=== PATIENT | female | born 1995 | race Caucasian/White ===

== ENCOUNTER 2017-11-08 09:38 | Emergency (ER) | payer SELFPAY ==
[~2017-11-08] VITALS: Ht 167.6 cm; Wt 67.5 kg
[~2017-11-08 09:38] MED LIST: PREDNISONE50 MG PO; PROVENTIL HFA6.7 GM IH; ZITHROMAX Z-PA250 MG PO
[2017-11-08 10:28] LABS: APPEARANCE CLOUDY ((CLEAR)); BILIRUBIN NEGATIVE; BLOOD MODERATE; GLUCOSE (STRIP) NEGATIVE; KETONES 20; LEUKOCYTES MODERATE; NITRITE NEGATIVE; PROTEIN (STRIP) 100; SPECIFIC GRAVITY 1.016 (1.000-1.030); UROBILINOGEN 0.2 MG/DL (0.2-1.0)
[2017-11-08 10:34] LABS: COLOR BLOODY ((YELLOW))
[2017-11-08 10:38] LABS: BASOPHIL (%) 0.4 % (0-1); EOSINOPHIL (%) 0.6 % (0-5); EOSINOPHIL COUNT 0.1 K/uL (0-0.3); HEMATOCRIT 39.9 % (36.0-46.0); HEMOGLOBIN 13.6 G/DL (11.9-15.5); IMMATURE GRANULOCYTE (%) 0.2 % (0.0-0.7); LYMPHOCYTE (%) 20.4 % (15-42); MCH 30.4 PG (29.0-34.0); MCHC 34.1 G/DL (30.0-36.0); MCV 89.1 FL (83-99); MONOCYTE (%) 5.4 % (3-12); MONOCYTE COUNT 0.5 K/uL (0-0.8); NEUTROPHIL COUNT 7.2 K/uL (1.8-6.4); PLATELET COUNT 112 K/uL (156-360); RBC DIS.WIDTH-SD 39.6 % (39-53); RED BLOOD COUNT 4.48 M/uL (3.80-5.20); WHITE BLOOD COUNT 9.9 K/uL (4.1-10.2)
[2017-11-08 10:47] LABS: CHLORIDE 105 mEq/L (99-109); POTASSIUM 4.5 mEq/L (3.7-5.4); SODIUM 141 mEq/L (136-147)
[2017-11-08 10:49] LABS: GLUCOSE 98 mg/dL (70-99)
[2017-11-08 10:49] LABS: RED BLOOD CELLS TNTC /HPF (0-5); UCUL ADDED? YES
[2017-11-08 10:53] LABS: CREATININE 0.9 mg/dL (0.6-1.3); GFR ESTIMATE (CALCULATED) > 59 mL/min/
[2017-11-08 10:54] LABS: UREA NITROGEN (BUN) 15 mg/dL (9-23)
[2017-11-08 11:01] LABS: QUANTITATIVE HCG < 4.0 MIU/ML
[2017-11-08] MEDS ORDERED: PYRIDIUM200 MG PO (12:51)
[2017-11-08] MEDS ORDERED: LORTAB 5-325 M1 EACH PO (12:51)
[2017-11-08] MEDS ORDERED: MOTRIN600 MG PO (12:51)
[2017-11-08 13:51] VITALS: BP 98/62
== END 2017-11-08 14:02 | disposition home or self-care (01) ==
LOC: EME 09:38
PROVIDERS: Emergency Medicine
DX: N12 Tubulo-interstitial nephritis, not specified as acute or chronic (principal); Z87.891 Personal history of nicotine dependence
CPT/HCPCS: 74176; 80048; 81003; 84702; 85025; 87077; 87086; 87186; 99281; 99285; J0696; J1885; J7040

== ENCOUNTER 2017-11-22 07:34 | Emergency (ER) | payer SELFPAY ==
[~2017-11-22] VITALS: Ht 167.6 cm; Wt 68.2 kg
[~2017-11-22 07:34] MED LIST changes: +LORTAB 5-325 M1 EACH PO; +MOTRIN600 MG PO; +PYRIDIUM200 MG PO
[2017-11-22 09:31] VITALS: BP 102/63
== END 2017-11-22 09:47 | disposition home or self-care (01) ==
LOC: EME 07:34
PROVIDERS: Physician Assistant
DX: J02.9 Acute pharyngitis, unspecified (principal)
CPT/HCPCS: 87502; 87651 90; 99281; 99284